=== PATIENT | female | born 1985 | race African-American/Black ===

== ENCOUNTER 2020-06-19 02:16 | Emergency (ER) | payer MEDICAID ==
[~2020-06-19] VITALS: Ht 177.8 cm; Wt 91.0 kg
[2020-06-19 02:42] VITALS: BP 107/71
== END 2020-06-19 03:05 | disposition home or self-care (01) ==
LOC: ER 02:16
DX: R10.9 Unspecified abdominal pain (principal); N92.0 Excessive and frequent menstruation with regular cycle
CPT/HCPCS: 81025; 93005; 99283

== ENCOUNTER 2020-06-21 11:10 | Emergency (ER) | payer MEDICAID ==
[~2020-06-21] VITALS: Ht 170.2 cm; Wt 90.0 kg
[2020-06-21 11:12] VITALS: BP 132/90
== END 2020-06-21 11:52 | disposition home or self-care (01) ==
LOC: ER 11:10
DX: R20.2 Paresthesia of skin (principal); G62.9 Polyneuropathy, unspecified
CPT/HCPCS: 81025; 99283

== ENCOUNTER 2022-12-30 06:09 | Emergency (ER) | payer MEDICAID ==
[~2022-12-30] VITALS: Ht 175.3 cm; Wt 102.0 kg
[2022-12-30 09:34] LABS: BASOPHILS % 0.6 % (0.0-2.0); EOSINOPHILS % 1.9 % (0.0-5.0); HEMOGLOBIN. 12.2 g/dL (12.0-16.0); LYMPHOCYTES % 38.7 % (20.0-50.0); MEAN CORPUSCULAR HEMOGLOBIN 30.5 pg (28.0-32.0); MEAN CORPUSCULAR VOLUME 92.4 fL (81.0-99.0); MONOCYTES % 14.9 % (2.0-8.0); NEUTROPHILS % 43.9 % (40.0-76.0); PLATELET 347 x1000/uL (130-400); RED BLOOD CELL COUNT 4.01 mill/uL (4.2-5.4); RED CELL DISTRIBUTION WIDTH 13.9 % (11.6-14.6)
[2022-12-30 09:42] LABS: CHLORIDE 106 mEq/L (98-107)
[2022-12-30 09:59] LABS: CREATINE KINASE 581 IU/L (26-192); ETHANOL BLOOD < 10 mg/dL
[2022-12-30 10:03] LABS: HCG SCREEN NEGATIVE
[2022-12-30] MEDS ORDERED: SODIUM CHLORIDE 0.9% 1,000 ML IV ONE (11:45)
[2022-12-30 12:41] LABS: *BARBITURATES SCREEN URINE NEGATIVE (NEGATIVE); *BENZODIAZEPINES SCREEN URINE NEGATIVE (NEGATIVE); *COCAINE SCREEN URINE NEGATIVE (NEGATIVE); METHADONE URINE SCREEN NEGATIVE (NEGATIVE); OPIATES URINE SCREEN NEGATIVE (NEGATIVE)
[2022-12-30 12:59] LABS: *AMPHETAMINES SCREEN URINE PRESUMTIVE POSITIVE (NEGATIVE); CANNABINOID URINE SCREEN PRESUMTIVE POSITIVE (NEGATIVE); PHENCYCLIDINE URINE SCREEN PRESUMTIVE POSITIVE (NEGATIVE)
[2022-12-30 13:33] LABS: BG BASE EXCESS -2.9 mmol/L (-2.0-2.0); BG CARBOXYHEMOGLOBIN 0.3 % (0.5-1.5); BG DEOXYHEMOGLOBIN 2.8 % (0.0-5.0); BG FRACTION INSPIRED OXYGEN 21; BG HCO3 ACT 21.2 mmol/L (22.0-26.0); BG METHEMOGLOBIN 0.3 % (0.0-1.5); BG OXYGEN SATURATION 97.2 % (92.0-98.5); BG OXYHEMOGLOBIN 96.6 % (94.0-97.0); BG PCO2 35.4 mmHg (35.0-45.0); BG PH 7.396 (7.350-7.450); BG PO2 98.4 mmHg (75.0-100.0); BG SAMPLE SITE RIGHT RADIAL; BG TOTAL HEMOGLOBIN 14.1 g/dL (12.0-18.0); BG VENT MODE ROOM AIR
[2022-12-30 15:31] VITALS: BP 136/85
== END 2022-12-30 15:34 | disposition home or self-care (01) ==
LOC: ER 06:19
DX: R41.82 Altered mental status, unspecified (principal)
CPT/HCPCS: 36415; 36600; 70450; 80053; 80305; 80307; 80320; 80329; 82375; 82550; 82805; 82962; 83690; 84443; 84703; 85025; 96360; 99284; J7030; Z7610; G0480